=== PATIENT | female | born 1985 | race Caucasian/White ===

== ENCOUNTER 2024-04-23 07:30 | Inpatient (IN) ==
--- NOTE | 2024-04-12 09:04 | Anesthesiology Consultation ---
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 History Surgery Operation Date: 04/23/24 07:30 Proposed Procedures p Section (Delivery of Baby Through Abdominal Incision) - Portia Schmidt DO s with Bilateral Tubal Ligation - Portia Schmidt DO Height/Weight Height: 5 ft 7 in Weight: 97.069 kg Allergies Allergy/AdvReac Type Severity Reaction Status Date / Time amoxicillin AdvReac Intermediate Hives Verified 04/12/24 07:58 Medications Home Medications Medication Instructions Recorded Confirmed Last Taken 21-iron fu-folic acid 1 tab PO DIRECTED 12/05/23 04/12/24 04/01/24 20:00 [ Complete] sertraline 25 mg tablet (Zoloft) 25 mg PO DAILY 03/02/24 04/12/24 04/03/24 09:00 Past Medical History Medical History (Updated 04/12/24 @ 09:00 by Luisa Crawley PA-C) COVID 08/2023 and 02/2024 - No hospitalizations Depression with anxiety Gestational diabetes Pt denies - completed follow up testing and all came back normal as per patient 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
--- NOTE | 2024-04-22 12:01 | History & Physical Report ---
Date of Service April 22, 2024 Assessment & Plan (1) Previous delivery affecting , antepartum: Plan: Plan for repeat section with tubal sterilization. Reviewed consent in detail, questions answered. History of Present Illness Chief Complaint: repeat section Primary Care Provider: Karan Dickerson 38yo with EDC 04/26/24 AMA Weekly NST's @ 36 weeks Prior c-sections x 2 - She is planning for tubal at time of csection C/S SCHEDULED ON 04/23/[address] FOFANA Need for Rhogam d/t Rh negative mother (O-) Given 02/25/24 - ML Transfer into care @ 19+ weeks renal pyelectasis Mild @ 24 wk Follow monthly; offer consult if mod/severe. *at 36wks 12.7mm----MFM consult April -MFM said did not need to see patient; peds urology did not have actual vist and state do not need to see patient during and recommend seeing baby about 2 weeks after delivery for US GDM w/28wk glucola *Begin monthly Growth US's Allergies Allergy/AdvReac Type Severity Reaction Status Date / Time amoxicillin AdvReac Intermediate Hives Verified 04/22/24 11:14 Home Medications Medication Instructions Recorded Confirmed Type 21-iron fu-folic acid 1 tab PO DIRECTED 12/05/23 04/22/24 History [ Complete] sertraline 25 mg tablet (Zoloft) 25 mg PO DAILY 03/02/24 04/22/24 History Patient History Medical History COVID 08/2023 and 02/2024 - No hospitalizations Depression with anxiety Gestational diabetes Pt denies - completed follow up testing and all came back normal as per patient 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 Hx of migraines PONV (postoperative nausea and vomiting) "previous c-sections I got really sick" Surgical History S/P section x2 S/P rhinoplasty S/P tonsillectomy Family History Aunt Mentally disabled Denies family history of Ovarian cancer Breast cancer Colorectal cancer Social History Smoking Status: Never smoker Second Hand Exposure: No; Do You Dip or Chew Tobacco: No; Hx Alcohol Use: No Hx Substance Use: No Preferred Language: Welsh Communication Ability: Effective Operations Technician Required: No Beliefs That Will Affect Care: None marital status: marital status details: Chance Esparza (44) [phone] Current Living Situation: Family Current Living Situation Comment: lives with spouse, 2 children, dogs current occupational status: employed current occupation: [employer] Feels Safe at Home: Yes Assistive Devices: None Review of Systems All systems reviewed & are unremarkable except as noted in HPI & below Physical Exam Constitutional: WD/WN, vitals as above Respiratory: normal respiratory effort, lungs clear to auscultation no respiratory distress Cardiovascular: Rate/Rhythm: regular rate and regular rhythm Gastrointestinal (Abdomen): Inspection/Auscultation: abdomen normal to inspection Percussion/Palpation: abdomen soft; abdomen nontender Gravid. No s/s chorio or abruption. Skin: no rashes, warm and dry Psychiatric: A+Ox3, euthymic affect Coding Level of Care Code None Diagnoses Previous delivery affecting , antepartum O34.219
[2024-04-23] MEDS ORDERED: PHENYLEPHRINE HCL 25 MG/250 ML NSS IV ONE (08:39)
[2024-04-23] MEDS ORDERED: ONDANSETRON INJ 2 MG/ML 2 ML VIAL ONE ×2 (08:39→11:17)
[2024-04-23] MEDS ORDERED: DEXAMETHASONE SOD INJ 4 MG/ML VIAL ONE (08:39)
[2024-04-23] MEDS ORDERED: KETOROLAC 30 MG/ML VIAL ONE (08:39)
[2024-04-23] MEDS ORDERED: OXYTOCIN 10 UNITS/ML VIAL ONE (08:39)
[2024-04-23] MEDS ORDERED: fentaNYL citrate PF 100 MCG/2 ML VIAL ONE (08:40)
[2024-04-23] MEDS ORDERED: MoRPHine SULFATE PF 1 MG/ML 10 ML AMP/VIAL ONE (08:40)
[2024-04-23 09:39] LABS: Hematocrit (blood only) 31.6 % (37.0-47.0); Hemoglobin 10.6 g/dl (12.0-16.0); Mean Corpuscular Hemoglobin 28.1 pg (25.0-34.0); Mean Corpuscular Hgb Conc 33.5 g/dL (32.0-36.0); Mean Corpuscular Volume 83.8 fL (80.0-100.0); Mean Platelet Volume 11.1 fL (9.4-12.4); Platelet Count 207 K/uL (130-400); RDW Coefficient of Variation 14.5 % (11.5-14.5); RDW Standard Deviation 44.3 fL (36.4-46.3); Red Blood Count 3.77 M/uL (4.20-5.40); White Blood Count 7.08 K/ul (4.8-10.8)
[2024-04-23] MEDS ORDERED: LACTATED RINGER'S 1,000 ML IV SCH ×2 (10:00→12:52)
[2024-04-23] MEDS: LACTATED RINGER'S 1,000 ML IV SCH (10:00)
[2024-04-23] MEDS: ACETAMINOPHEN 500 MG TAB PO ONE (10:13)
[2024-04-23] MEDS: CITRIC ACID/SODIUM CITRATE 15 ML UDC PO ONE (10:14)
--- NOTE | 2024-04-23 10:45 | History & Physical Bridge Note ---
Date of Service April 23, 2024 History & Physical Bridge Note I have examined the patient, reviewed the History & Physical and in the interval since the performance of the History & Physical I have noted the following changes of clinical significance: no changes noted
[2024-04-23] MEDS: CLINDAMYCIN/D5W 900 MG/50 ML BAG IV SCH (10:47)
[2024-04-23] MEDS ORDERED: PROMETHAZINE 6.25 MG/50.25 ML BAG IV PRN (11:18)
[2024-04-23] MEDS ORDERED: LACTATED RINGER'S 500 ML IV PRN (11:18)
[2024-04-23] MEDS ORDERED: KETOROLAC 30 MG/ML VIAL IV PRN (11:18)
[2024-04-23] MEDS ORDERED: NALOXONE HCL 1 MG in SODIUM CHLORIDE 0.9% 1,000 ML IV PRN (11:18)
[2024-04-23] MEDS ORDERED: NALOXONE HCL 0.4 MG/1 ML VIAL/CARP IV PRN (11:18)
[2024-04-23] MEDS ORDERED: ONDANSETRON INJ 2 MG/ML 2 ML VIAL IV PRN (11:18)
[2024-04-23] MEDS ORDERED: NALOXONE HCL 0.08 MG in SYRINGE 1.8 ML IV PRN (11:18)
[2024-04-23] MEDS ORDERED: HYDROmorphone INJ 0.5 MG/0.5 ML SYR IV PRN (11:18)
[2024-04-23] MEDS ORDERED: ePHEDrine sulfate 50 MG/ML AMP IV PRN (11:18)
[2024-04-23] MEDS ORDERED: NALBUPHINE HCL INJ 10 MG/ML AMP IV PRN (11:18)
[2024-04-23] MEDS ORDERED: ACETAMINOPHEN 1,000 MG/100 ML VIAL IV PRN (11:23)
[2024-04-23] MEDS ORDERED: PROMETHAZINE HCL INJ 25 MG/ML 1 ML VIAL ONE (11:24)
[2024-04-23] MEDS ORDERED: NO NARCOTICS OR SEDATIVES SCH (11:30)
[2024-04-23] MEDS ORDERED: DC INTRASPINAL MORPHINE SCH (11:30)
[2024-04-23] MEDS: OXYTOCIN 30 UNITS/LR 1,003 ML IV SCH (11:35)
[2024-04-23] MEDS ORDERED: ARISTA ABSORBABLE HEMOSTAT 3GM TOP ONE (11:48)
[2024-04-23 12:01] LABS: Base Excess Cord Arterial Bld -1.6 mEq/L (-9-1.8); Base Excess Cord Venous Blood -1.1 mEq/L (-7.7-1.9); CO2 Cord Arterial Blood 56 mmHg (39.1-73.5); Cord Venous Blood HCO3 24 mmol/L (18.4-26.8); Cord Venous Blood PCO2 42 mmHg (30.4-57.2); Cord Venous Blood PO2 23 mmHg (14.1-43.3); Cord Venous Blood pH 7.37 (7.20-7.44); HCO3 Cord Arterial Blood 26 mmol/L (19.7-28.5); O2 Saturation Cord Venous Bld < 60.0 % (<68); Oxygen Sat Cord Arterial Blood < 60.0 % (<60); PO2 Cord Arterial Blood < 20 mmHg (4.1-31.7); pH Cord Arterial Blood 7.28 (7.1-7.38)
--- NOTE | 2024-04-23 12:22 | Operative Report ---
Post Operative Report Pre & Post Diagnosis Operation Date: 04/23/24 10:10 Pre-Op Diagnosis: History of section x2. Desires permanent sterilization. Post-Op Diagnosis: History of section x2. Desires permanent sterilization. Delivery of live male child at 1121. I identified the patient and participated in the time-out.: Yes Procedure Operation Date: 04/23/24 10:10 Actual Procedures p Repeat Low Transverse Section , delivery of live male child at 1121 - Portia Schmidt DO s with Bilateral Tubal Ligation - Portia Schmidt DO Surgeon Portia Schmidt, Online Communications Specialist M Tamara Quantitative Blood Loss (QBL) 538 Findings Consistent with Post-Op Diagnosis Viable Male , Apgars 8/9. Weight pending, please see nursery records. Normal appearing uterus, tubes, ovaries. Specimens placenta, cord blood, cord gas, bilateral fallopian tubes Drains carrillo clear yellow Anesthesia Type Spinal Complications none Disposition Accompanied Patient To Recovery: No Disposition: L&D Indications 38yo @ 39 4/, h/o x2, AMA, Rh negative, GDMA1, pyelectasis Description of Procedure The patient was seen in her labor and delivery room, risks benefits and alternatives to surgery were reviewed. Informed consent obtained in office under no duress. Questions were answered. She was taken to the operating room, spinal anesthesia was administered. She was then prepared and draped in the usual sterile fashion in the supine position with a leftward tilt. Timeout was confirmed. A Pfannenstiel skin incision was made with a scalpel, and carried through to the underlying layer of fascia. Fascia was nicked at midline, and this incision was extended bilaterally. The superior aspect of the fascial incision was grasped with Jerri clamps x2, elevated off the underlying rectus abdominis muscles, and dissected sharply and bluntly. In similar fashion, the inferior aspect of the fascial incision was dissected. The rectus abdominis muscles were , and the peritoneum was entered bluntly digitally. This was extended bilaterally. The bladder flap was taken down carefully using Metzenbaum scissors. Using a new scalpel, a low transverse uterine incision was created. Clear amniotic fluid noted. The infant was delivered from a cephalic presentation. The head delivered, followed by shoulders and body. Spontaneous cry on the field. The cord was doubly clamped and cut, and the was handed off to the waiting slubber runner. A segment was retained for cord gases. Cord blood was obtained. The placenta was delivered spontaneously intact. The uterus was exteriorized, and cleared of all clots and debris. The hysterotomy incision was reapproximated using 0 Vicryl in a running locked stitch. A second layer of the same suture was used to imbricate the incision. Posterior uterus was evaluated and normal. Right fallopian tube identified to fimbria, and transected from mesosalpinx, transected from uterus. In a similar fashion, left fallopian tube was identified and transected. The uterus was returned to the abdomen, and gutters were cleared of clots and debris. Excellent hemostasis was observed. The fascial incision was reapproximated using 0 Vicryl in a running stitch. The subcutaneous tissue was irrigated, and reapproximated using 2-0 plain gut in a running stitch. The skin was reapproximated using 4-0 Vicryl in a running subcuticular stitch. Steri-Strips and a bandage were applied. The patient tolerated the procedure well, and will be taken to the recovery area in stable and good condition. I attest to the content of the Intraoperative Record and any orders documented therein. Any exceptions are noted below. OB Procedure Charges [id number] Add on Tubal for C/S
[2024-04-23] MEDS ORDERED: SENNA 8.6 MG TAB PO PRN (12:52)
[2024-04-23] MEDS ORDERED: HYDROCORTISONE ACETATE 25 MG SUPP PR PRN (12:52)
[2024-04-23] MEDS ORDERED: BENZOCAINE 20% SPRY 85 APPLN/85 GM CAN EXT PRN (12:52)
[2024-04-23] MEDS ORDERED: MAGNESIUM HYDROXIDE SUSP 30 ML UDC PO PRN (12:52)
[2024-04-23] MEDS ORDERED: CALCIUM CARBONATE 500 MG CHEWABLE TAB PO PRN (12:52)
[2024-04-23] MEDS: diphenhydrAMINE 50 MG/ML VIAL IV PRN (13:37)
--- NOTE | 2024-04-23 14:45 | Anesthesiology Progress Note ---
Date of Service April 23, 2024 Anesthesia Post Procedure Vital Signs Vital Signs: Temp Pulse Pulse Resp BP BP Pulse Ox 04/23/24 14:33 97 04/23/24 14:33 94 H 04/23/24 14:28 97 04/23/24 14:28 83 04/23/24 14:28 109/65 04/23/24 14:23 97 04/23/24 14:23 87 04/23/24 14:19 92 04/23/24 14:19 93 H 04/23/24 14:18 96 04/23/24 14:18 86 04/23/24 14:18 98/59 L 04/23/24 14:13 97 04/23/24 14:13 84 04/23/24 14:09 80 04/23/24 14:09 97/56 L 04/23/24 14:08 98 04/23/24 14:08 85 04/23/24 14:03 98 04/23/24 14:03 86 04/23/24 13:58 98 04/23/24 13:58 81 04/23/24 13:58 111/58 L 04/23/24 13:53 99 04/23/24 13:53 86 04/23/24 13:48 99 04/23/24 13:48 85 04/23/24 13:48 118/63 04/23/24 13:43 99 04/23/24 13:43 86 04/23/24 13:39 83 04/23/24 13:39 118/62 04/23/24 13:38 99 04/23/24 13:38 81 04/23/24 13:33 99 04/23/24 13:33 78 04/23/24 13:29 78 04/23/24 13:29 110/68 04/23/24 13:28 99 04/23/24 13:28 81 04/23/24 13:23 99 04/23/24 13:23 74 04/23/24 13:19 71 04/23/24 13:19 105/67 04/23/24 13:18 98 04/23/24 13:18 73 04/23/24 13:13 99 04/23/24 13:13 81 04/23/24 13:09 80 04/23/24 13:09 118/58 L 04/23/24 13:08 94 04/23/24 13:08 84 04/23/24 13:03 98 04/23/24 13:03 72 04/23/24 12:59 76 04/23/24 12:59 123/59 L 04/23/24 12:58 99 04/23/24 12:58 74 04/23/24 12:53 99 04/23/24 12:53 72 04/23/24 12:48 99 04/23/24 12:48 83 04/23/24 12:43 100 04/23/24 12:43 77 04/23/24 12:42 69 04/23/24 12:42 107/69 04/23/24 12:38 99 04/23/24 12:38 78 04/23/24 12:33 100 04/23/24 12:33 82 04/23/24 12:29 71 04/23/24 12:29 111/56 L 04/23/24 12:28 100 04/23/24 12:28 71 04/23/24 12:23 99 04/23/24 12:23 72 04/23/24 12:20 97.9 F 76 18 111/64 98 04/23/24 12:19 76 04/23/24 12:19 111/64 04/23/24 12:18 99 04/23/24 12:18 75 04/23/24 08:33 98.1 F 79 18 116/79 04/23/24 08:24 79 116/79 O2 Del Method 04/23/24 14:33 04/23/24 14:33 04/23/24 14:28 04/23/24 14:28 04/23/24 14:28 04/23/24 14:23 04/23/24 14:23 04/23/24 14:19 04/23/24 14:19 04/23/24 14:18 04/23/24 14:18 04/23/24 14:18 04/23/24 14:13 04/23/24 14:13 04/23/24 14:09 04/23/24 14:09 04/23/24 14:08 04/23/24 14:08 04/23/24 14:03 04/23/24 14:03 04/23/24 13:58 04/23/24 13:58 04/23/24 13:58 04/23/24 13:53 04/23/24 13:53 04/23/24 13:48 04/23/24 13:48 04/23/24 13:48 04/23/24 13:43 04/23/24 13:43 04/23/24 13:39 04/23/24 13:39 04/23/24 13:38 04/23/24 13:38 04/23/24 13:33 04/23/24 13:33 04/23/24 13:29 04/23/24 13:29 04/23/24 13:28 04/23/24 13:28 04/23/24 13:23 04/23/24 13:23 04/23/24 13:19 04/23/24 13:19 04/23/24 13:18 04/23/24 13:18 04/23/24 13:13 04/23/24 13:13 04/23/24 13:09 04/23/24 13:09 04/23/24 13:08 04/23/24 13:08 04/23/24 13:03 04/23/24 13:03 04/23/24 12:59 04/23/24 12:59 04/23/24 12:58 04/23/24 12:58 04/23/24 12:53 04/23/24 12:53 04/23/24 12:48 04/23/24 12:48 04/23/24 12:43 04/23/24 12:43 04/23/24 12:42 04/23/24 12:42 04/23/24 12:38 04/23/24 12:38 04/23/24 12:33 04/23/24 12:33 04/23/24 12:29 04/23/24 12:29 04/23/24 12:28 04/23/24 12:28 04/23/24 12:23 04/23/24 12:23 04/23/24 12:20 Room Air 04/23/24 12:19 04/23/24 12:19 04/23/24 12:18 04/23/24 12:18 04/23/24 08:33 04/23/24 08:24 Transfer of Care Handoff Completed per policy Notes Mental Status: alert / awake / arousable and participated in evaluation Patient Amnestic to Procedure: Yes Nausea / Vomiting: adequately controlled Pain: adequately controlled Airway Patency, RR, SpO2: stable & adequate BP & HR: stable & adequate Hydration State: stable & adequate Neuraxial Anesthesia: was administered and sensory block is resolving Anesthetic Complications: no major complications apparent and Pt Satisfied with anesthetic care
[2024-04-23] MEDS: OXYTOCIN 20 UNITS/1002ML LR IV ONE (16:34)
[2024-04-23] MEDS: SODIUM CHLORIDE 0.9% 1,000 ML IV SCH (16:34)
[2024-04-23] MEDS: MoRPHine SULFATE PF 1 MG/ML 10 ML AMP/VIAL INT SPINAL ONE (16:34)
[2024-04-23] MEDS: DIPHTHER/TETAN/PERTUS Vaccine (Tdap, Adol/Adult) 0.5mL IM ONE (16:35)
[2024-04-23] MEDS: SIMETHICONE 80 MG CHEW PO SCH (16:36)
[2024-04-23] MEDS: ACETAMINOPHEN 325 MG TAB PO SCH (17:55)
[2024-04-23] MEDS: IBUPROFEN 600 MG TAB PO SCH (17:56)
[2024-04-23] MEDS ORDERED: Nursing to Pharmacy Communication SCH (18:15)
[2024-04-23] MEDS: SERTRALINE HCL 50 MG TABLET PO ONE (20:49)
[2024-04-23] MEDS: DOCUSATE SODIUM 100 MG CAP PO SCH (21:10)
[2024-04-24] MEDS: oxyCODONE HCL IR 5 MG TAB (IMMEDIATE RELEASE) PO STA (02:10)
[2024-04-24] MEDS ORDERED: diphenhydrAMINE 50 MG/ML VIAL IV PRN (05:19)
[2024-04-24] MEDS ORDERED: ONDANSETRON INJ 2 MG/ML 2 ML VIAL IV PRN (05:19)
[2024-04-24] MEDS ORDERED: HYDROmorphone INJ 0.5 MG/0.5 ML SYR IV PRN (05:19)
[2024-04-24] MEDS ORDERED: PROMETHAZINE 12.5 MG/50.5 ML BAG IV PRN (05:19)
[2024-04-24] MEDS ORDERED: diphenhydrAMINE Capsule 25 MG CAP PO PRN (05:19)
[2024-04-24 06:44] LABS: Basophils # (auto) 0.02 K/uL (0.00-0.20); Basophils % (auto) 0.3 %; Eosinophils # (auto) 0.07 K/uL (0.00-0.50); Eosinophils % (auto) 0.9 %; Hematocrit (blood only) 26.2 % (37.0-47.0); Hemoglobin 8.9 g/dl (12.0-16.0); Immature Granulocytes # (auto) 0.02 K/uL (0.01-0.20); Immature Granulocytes % (auto) 0.3 %; Lymphocytes # (auto) 1.97 K/uL (1.20-3.40); Lymphocytes % (auto) 25.6 %; Mean Corpuscular Hemoglobin 28.7 pg (25.0-34.0); Mean Corpuscular Volume 84.5 fL (80.0-100.0); Monocytes # (auto) 0.92 K/uL (0.11-0.59); Neutrophils # (auto) 4.69 K/uL (1.40-6.50); Neutrophils % (auto) 60.9 %; Platelet Count 185 K/uL (130-400); RDW Coefficient of Variation 14.4 % (11.5-14.5); RDW Standard Deviation 44.5 fL (36.4-46.3); White Blood Count 7.69 K/ul (4.8-10.8)
--- NOTE | 2024-04-24 07:04 | Obstetrical Progress Note ---
Date of Service April 24, 2024 Assessment & Plan (1) Encounter for assessment: Plan: Patient is POD 1 s/p LTCS and doing well - Eating well, voiding well, ambulating well - vitals reviewed and within normal limits - pain well controlled with analgesics - OOB, ambulation, diet progression as tolerated - Blood type: O-, GBS neg, rubella immune - Plan to discharge tomorrow - After discharge, 6 week follow up with OB Admission and Anticipated Discharge Date Admission Date: April 23, 2024 Supervising Physician Co-Signing Physician Notes Resident Physician Supervision Note: I interviewed and examined the patient. Discussed with Dr. Jones and agree with findings and plan as documented in the note. Any exceptions or clarifications are listed here: [None] Documented By: Karen Mcdonald MD, FACOG Subjective 38 yo post-operative day 1 s/p lower transverse Ambulation: ambulating normally Voiding: no voiding problems Passing Gas:: Yes Diet Tolerance:: regular diet Lochia:: Small Feeding Type:: breast feeding Current Pain Level:7/10 overnight, but improved to 1/10 with Tylenol and Toradol Resting comfortably this AM in NAD. Denies HOPKINS, CP, SOB, N/V/D, LE pain/swelling. Physical Exam Physical Exam: General: patient resting comfortably, NAD, non-toxic in appearance, answers questions appropriately. Skin: warm, dry, intact HEENT: NC/AT, anicteric sclera, conjunctiva without injection, moist mucus membranes. Heart: +S1/S2, regular, no m/r/g Lungs: equal air entry bilaterally, no rales/rhonchi/wheezes Abd: +BS, soft, NT/ND, uterine fundus firm at umbilicus Ext: warm, no clubbing/cyanosis or edema, Davide's neg. Neuro: nonfocal, speech intact, no facial droop, moving all extremities. Results & Data Vital Signs (Past 12 Hours) Vital Signs Temp Pulse Resp BP Pulse Ox O2 Del Method 04/24/24 04:30 36.8 C 75 16 102/65 96 Room Air 04/24/24 00:15 36.5 C 75 18 110/68 96 Room Air 04/23/24 19:15 37.4 C 87 18 115/69 96 Room Air 04/23/24 19:05 20 96 Resident Activity Tracking Resident Involvement: Resident Care Provided Care Provided: OB Delivery (1) Encounter for assessment visit type: exam and care immediately after delivery Qualified Code(s): Z39.0 - Encounter for care and examination of mother immediately after delivery
[2024-04-24] MEDS: PRENATAL VITAMIN 1 TAB PO SCH (08:00)
[2024-04-24] MEDS: oxyCODONE HCL IR 5 MG TAB (IMMEDIATE RELEASE) PO PRN (08:00)
[2024-04-24] MEDS: FERROUS SULFATE 325 MG TAB PO SCH (08:00)
[2024-04-24] MEDS: SERTRALINE HCL 50 MG TABLET PO SCH (08:12)
[2024-04-24] MEDS ORDERED: bisacodyL 5 MG TABEC PO SCH (20:00)
[2024-04-24 23:43] VITALS: TEMP 97.9
[2024-04-25 07:10] LABS: Hematocrit (blood only) 29.9 % (37.0-47.0); Hemoglobin 9.7 g/dl (12.0-16.0)
[2024-04-25 08:14] VITALS: BP 105/72; RESP 16; O2SAT 99
--- NOTE | 2024-04-25 09:02 | Obstetrical Progress Note ---
Date of Service April 25, 2024 Assessment & Plan (1) Encounter for assessment: POD#2 doing well. Incision CDI. Pain controlled with oxycodone - desires Rx for home, will send Percocet #10 tabs to [facility]. Desires DC home. Reviewed instructions, will follow up in office 6w. visit type: exam and care immediately after delivery Qualified Code(s): Z39.0 - Encounter for care and examination of mother immediately after delivery Subjective Ambulation: ambulating normally Voiding: no voiding problems Diet Tolerance:: regular diet Lochia:: Moderate Review of Systems All systems reviewed & are unremarkable except as noted in HPI & below Physical Exam Constitutional WD/WN, vitals as above no acute distress Respiratory normal respiratory effort Cardiovascular Rate/Rhythm: regular rate and regular rhythm Gastrointestinal (Abdomen) Inspection/Auscultation: abdomen normal to inspection; abdomen not distended Percussion/Palpation: abdomen soft Genitourinary OB Exam Abdomen: + fundal height Fundus: + firm; not tender Results & Data Vital Signs (Past 12 Hours) Vital Signs Temp Pulse Resp BP Pulse Ox O2 Del Method 04/25/24 07:40 36.6 C 61 16 105/72 99 Room Air 04/24/24 23:40 36.6 C 71 18 98/72 L 97 Room Air
[2024-04-25 10:10] VITALS: PULSE 76
[2024-04-25] MEDS ORDERED: bisacodyL 10 MG SUPP PR PRN (12:34)
[2024-04-25] MEDS ORDERED: ACETAMINOPHEN 325 MG TAB PO PRN (17:34)
[2024-04-25] MEDS ORDERED: IBUPROFEN 600 MG TAB PO PRN (17:34)
--- NOTE | 2024-04-27 17:57 | Discharge Summary ---
Date of Service April 27, 2024 Admission HPI Per Admitting Provider 38yo with EDC 04/26/24 AMA Weekly NST's @ 36 weeks Prior c-sections x 2 - She is planning for tubal at time of csection C/S SCHEDULED ON 04/23/[address] SCHMIDT Need for Rhogam d/t Rh negative mother (O-) Given 02/25/24 - ML Transfer into care @ 19+ weeks renal pyelectasis Mild @ 24 wk Follow monthly; offer consult if mod/severe. *at 36wks 12.7mm----MFM consult AprilMFM said did not need to see patient; peds urology did not have actual vist and state do not need to see patient during and recommend seeing baby about 2 weeks after delivery for US GDM w/28wk glucola *Begin monthly Growth US's Admission Exam (Per Admitting) Constitutional WD/WN, vitals as above no acute distress Respiratory normal respiratory effort, lungs clear to auscultation normal respiratory effort; no respiratory distress Cardiovascular Rate/Rhythm: regular rate and regular rhythm Gastrointestinal (Abdomen) Inspection/Auscultation: abdomen normal to inspection; abdomen not distended Percussion/Palpation: abdomen soft; abdomen nontender Skin no rashes, warm and dry Psychiatric A+Ox3, euthymic affect Genitourinary OB Exam Abdomen: + fundal height Discharge Data Consultations 04/23/24 08:52 Consult Anesthesiology Stat Procedures Performed Operation Date: 04/23/24 10:10 Actual Procedures p , delivery of live male child at 1121 - Portia Schmidt DO s with Bilateral Tubal Ligation - Portia Schmidt DO Hospital Course (1) Encounter for assessment: POD#2 doing well. Incision CDI. Pain controlled with oxycodone - desires Rx for home, will send Percocet #10 tabs to [facility]. Kenyas DC home. Reviewed instructions, will follow up in office 6w. Coding Level of Care Code None Diagnoses Encounter for care or examination of mother immediately after delivery Z39.0 visit type: exam and care immediately after delivery
== END 2024-04-25 12:55 | disposition home or self-care (01) | DRG 785 ==
LOC: 4S1 08:13 → EDSTATUS 09:10 → 4E2 14:55
PROC: M.PPTLD (2024-04-23 10:10)
DX: Z30.2 Encounter for sterilization; Z79.899 Other long term (current) drug therapy; Z67.41 Type O blood, Rh negative; Z88.0 Allergy status to penicillin; Z3A.39 39 weeks gestation of pregnancy; Z37.0 Single live birth; O26.893 Other specified pregnancy related conditions, third trimester; O34.219 Maternal care for unspecified type scar from previous cesarean delivery